=== PATIENT | male | born 2005 | race Caucasian/White ===

== ENCOUNTER 2025-02-06 15:18 | Outpatient (REF) | payer OTHER, SELFPAY ==
--- NOTE | ~2025-02-06 | MR_ITS ---
EXAMINATION: MR SHOULDER, RIGHT CLINICAL INFORMATION: Right shoulder injury during drill/football practice. 19-year-old male. COMPARISON: No prior imaging available. TECHNIQUE: Multiplanar multisequence MR imaging of the right shoulder was done without IV contrast. Examination performed on a 1.5 Nahed Siemens unit utilizing standard sequences. FINDINGS: Rotator Cuff and Biceps Tendon: Supraspinatus: Intact and normal in signal. No discrete tear. Normal muscle belly. Infraspinatus: Intact and normal in signal. No discrete tear. Normal muscle belly. Subscapularis: Intact and normal in signal. No discrete tear. Normal muscle belly. Teres Minor: Intact and normal in signal. No discrete tear. Normal muscle belly. Biceps Long Head: Normally located within the bicipital groove. The tendon is normal in morphology. The rotator interval aspect of the tendon is normal. The anchor is intact. AC Joint and Acromiohumeral Arch: There is edema surrounding the AC joint, more notable involving the distal clavicle, with mild periarticular edema and minimal joint capsular distention. Findings suggest low-grade AC injury. There is a type III acromion. No subacromial spurring. No subacromial narrowing or supraspinatus outlet impingement. Glenohumeral Joint and Labrum: Normal-appearing glenohumeral joint. No cartilaginous abnormalities. Normal joint fluid. Normal alignment with the glenoid. Osseous Structures: Aside from mild edema abutting the AC joint, there is no additional abnormal bone marrow edema or signal. Spino-glenoid Notch: Normal. Quadrilateral Space: Normal. Other: No significant bursal abnormalities. Glenohumeral ligaments are intact. Shoulder girdle musculature is normal in signal. MR/MR shoulder RT wo con IMPRESSION: 1. Findings consistent with a low-grade AC joint injury. 2. The rotator cuff is intact. 3. The remainder of the examination is normal. Electronically signed by: Antwon Ho MD 02/07/2025 08:20 AM EDT
--- OUTSIDE RECORDS SUMMARY | 2025-02-06 18:07 | XMS_ITS | Clinical Summary ---
Author Organization [facility] Address [address] [place] [address] Phone Care Team Providers Care Unloader Operator Name Role Phone Unavailable Primary Care Provider Unavailabl e Medications metaxalone (Skelaxin) 800 mg tablet Take 1 tablet (800 mg total) by mouth 3 (three) times a day for 3 days. 9 tablet 01/05/2024 Active Social History Tobacco Use Types Packs/Day Years Used Date Smoking Tobacco: Never Assessed Sex and Gender Information Value Date Recorded Sex Assigned at Male 03/11/2022 9:26 AM EDT Legal Sex Male 9:13 AM EDT Gender Identity Male 03/11/2022 9:15 AM EDT Sexual Orientation Don't know 02/20/2023 1: 10 PM EDT Last Filed Vital Signs Vital Sign Reading Time Taken Comments Blood Pressure 138/81 04/19/2024 2:51 PM EDT Pulse 80 04/19/2024 2:51 PM EDT Temperature 36.4 ??C (97.6 ??F) 04/19/2024 2:51 PM ED T Respiratory Rate - - Oxygen Saturation 97% 04/19/2024 2:51 PM EDT Inhaled Oxygen Concentration - - Weight 103.9 kg (229 lb) 04/19/2024 2:51 PM EDT Height 182.9 cm (6') 04/19/2024 2:51 PM EDT Body Mass Index 31.06 04/19/2024 2:51 PM EDT Plan of Treatment Health Maintenance Due Date Last Done Comments Obesity Intervention 02/07/2010 HPV Vaccines (1 - Male 3-dos e series) 02/07/2019 [facility] Meningococcal B Vaccine (1 of 2 - Standard) 2020 DTaP,Tdap,and Td Vaccines (1 - Tdap) 02/07/2022 Hepatitis B Vaccines (1 of 3 - 19+ 3-dose series) 02/07/2023 COVID-19 Vaccine (1 - 2023-2 5 season) 2024 Preventive Exam 04/19/2025 04/19/2024, 03/18/2022 Influenza Vaccine (Season Ended) 2025 Adult BMI Assessment 04/19/2026 04/19/2024 Zoster Vaccines (1 of 2) 02/07/2054 HIB Vaccines Aged Out No longer eligi ble based on patient's age to complete this topic Hepatitis A Vaccines Aged Out No long er eligible based on patient's age to complete this topic IPV Vaccines Aged Out No longer eligi ble based on patient's age to complete this topic Meningococcal Vaccine Aged Out No sarah joan eligible based on patient's age to complete this topic Pneumococcal Vaccine: Pediatrics (0 to 5 years) and at-risk patients (6 to 64 years) Aged Out No longer eligible b ased on patient's age to complete this topic Rotavirus Vaccines Aged Out No longer eligible based on patient's age to complete this topic Insurance [facility] Member Subscriber Plan / Payer (Ef fective 2022-Present) Name:Neo Garner Relation to Subscriber:Self Name:Neo Garner Payer ID:[id number] Group ID:Not on file Type:Medicaid Address: [address] [id number] STUDENT
--- OUTSIDE RECORDS SUMMARY | 2025-02-06 18:07 | XMS_ITS | Referral Summary ---
Author Organization [facility] Address [address] [place] [address] Phone Care Team Providers Care Shower Doors And Panels Fabricator Name Role Phone Unavailable Primary Care Provider [...] 04/19/2024 2:51 PM EDT Plan of Treatment Not on file Insurance [facility] STUDENT
== END 2025-02-06 15:19 | disposition home or self-care (01) ==
LOC: HO.MRI 15:18
PROVIDERS: Visit Provider Student in an Organized Health Care Education/Training Program
DX: M25.511 Pain in right shoulder (principal)
CPT/HCPCS: 73221

== ENCOUNTER → 2025-02-06 15:25 | Outpatient (BNV) | payer OTHER, SELFPAY | PROVIDERS: Visit Provider Radiology Diagnostic Radiology | DX: S49.91XA Unspecified injury of right shoulder and upper arm, initial encounter (principal) | CPT/HCPCS: 73221 ==

== ENCOUNTER 2025-08-23 15:16 | Outpatient (REF) | payer OTHER, SELFPAY ==
--- OUTSIDE RECORDS SUMMARY | 2012-10-07 05:40 | XMS_ITS | Continuity of Care Document ---
Author Organization [facility] n[facility] Address [address] [place] [address] Phone Care Team Providers Care Decorating And Assembly Supervisor Name Role Phone Unavailable Unavailable Unavailable Allergies, Adverse Reactions, Alerts Substance Reaction Status Criticality No Known allergies Procedures Procedure Date OV, New Pt, Level III Diagnostic Nasal Endoscopy Consult, Level IV / Office Spirometry W/mnchs-vz-djjie Everardo 010 [address] Allergy Skin Tests Advance Directives Directive Yes / No Effective Date File Name No Information Encounters Encounter Description Practice Location Reason(s) For Visit Diagnoses Date Provider Providers Copied on Encounter OV, New Pt, Level III [facility], [address], [place], [place], [id number] , tel: [phone] [facility] Nasal Fracture (chief complaint) Nasal Bone Fx-closedAllergi c Rhinitis NosHypertrophy Adenoids 2 No Information Consult, Level IV / Office [facility], [address], [place], [place], [id number] , tel: [phone] [facility] Rhinitis (A) (chief complaint) Chr Allrg Conjunctiv NecCoughHypertro phy T And A 0 Chauncey Ireland. [address] [place], [place], [place], [id number], [place]. tel:[phone] Family History Family Member Type Diagnosis Age At Onset Problem (finding) Family history of malignant neoplasm of lung Problem (finding) Family history of cance r of colon Problem (finding) Family history of Aller gies Problem (finding) Eczema Problem (finding) Family history of hyper tension Problem (finding) Family history of breas t cancer Payers Payer name Insurance type Covered democrat ID Authoriza tion(s) No Information Social History Type Description Quantity Date Captured Comments Alcohol Use Details No Caffeine Use Details No Tobacco Use Status No Information Smoking Status Never smoker Sex Male Sexual Orientation Choose not to disclose Vital Signs Date / Time: Height Weight BMI Pulse Rate Blood Pressure Temperature Respiratory Rate Body Surface Area Head Circumference Head Circ. Percentile Wt./Jesús. Percentile BMI percentile Pulse Ox Inhaled Ox 10:01 AM 80.00 lbs Chief Complaint And Reason For Visit From encounter dated '10/07/2012 09:40'. Nasal Fracture (chief complaint). Description: The onset was 6 day(s) ago. The etiology of the fracture was an athletic injury. It has been 6 day(s) since the injury. The direction of the fracture ishead on. The appearance is described as swollen. Associated symptoms include epistaxis (bilateral),ecchymosis. Pertinent negatives include clear rhinorrhea, nasal tenderness, change in mental status, loss of conciousness, sensory deficits in cheek of anterior dentition. Ocular symptoms do not include diplopia. Previous tests performed include nasal x-ray (abnormal - nondisplaced). Reason For Referral Reason For Referral No Information History Of Present Illness Encounter Date Complaint History Of Prese nt Illness No Information Functional Status Date Functional Assessmen t No Information Instructions Date Instruction Additional Infor mation No Information Assessments Type Assessment Date No Information Patient Care Teams Name Effective Dates (start - stop) Status Members No Information
--- NOTE | ~2025-08-23 | MR_ITS ---
CLINICAL HISTORY: FB INJURY 10 18, ?LCL O RLATERAL MENISCUS TEAR Exam: Nonenhanced MRI of the left knee. Comparison: None. Findings: Menisci: Meniscal signal intensities are well-maintained, with no evidence of meniscal tears. Ligaments: Anterior and posterior cruciate ligaments appear intact. Medial collateral ligament appears intact. The fibular collateral ligament appears intact proximally although reveals edema distally near the level of the fibular head (12; 21-24). There is also some edema of the popliteal fibular ligament (12; 25), suggesting posterolateral corner ligamentous injury, without resultant anterior cruciate ligament tear. Osseous structures: There is mild bone marrow edema/bone bruise or likely mild impaction injury involving the anterior aspect of the lateral femoral condyle (10; 8-10 and 12; 13-15). Remaining bone marrow signal intensities appear maintained. Cartilage: Cartilage thickness is maintained. Joint space and soft tissues: Trace joint effusion. No popliteal cysts. Impression: 1. Mild bone marrow edema involving anterior aspect of the lateral femoral condyle, suggesting bone bruise or mild impaction injury. 2. Injury to the distal fibular collateral ligament/lateral collateral ligament with findings suggesting posterolateral corner ligamentous injury, without associated anterior cruciate ligament tear. This document has been electronically signed by: Jamie Eason MD on 08/23/2025 20:36:59
--- OUTSIDE RECORDS SUMMARY | 2025-08-23 21:34 | XMS_ITS | Clinical Summary ---
Author Organization [facility] Address [address] [place] [address] Phone Care Team Providers Care Machine Umbrella Tipper Name Role Phone Unavailable Primary Care Provider [...] 80 04/19/2024 2:51 PM EDT Temperature 36.4 C (97.6 F) 04/19/2024 2:51 PM EDT Respiratory Rate - - Oxygen Saturation 97% 04/19/2024 2:51 PM EDT Inhaled Oxygen Concentration - - Weight 103.9 kg (229 lb) 04/19/2024 2:51 PM EDT Height 182.9 cm (6') 04/19/2024 2:51 PM EDT Body Mass Index 31.06 04/19/2024 2:51 PM EDT Plan of Treatment Health Maintenance Due Date Last Done Comments HPV Vaccines (1 - Male 3-dos e series) 02/07/2019 [facility] Meningococcal B Vaccine (1 of 2 - Standard) 2020 Adult BMI Assessment 02/07/2021 DTaP,Tdap,and Td Vaccines (1 - Tdap) 02/07/2022 Hepatitis B Vaccines (1 of 3 - 19+ 3-dose series) 02/07/2023 Preventive Exam 04/19/2025 04/19/2024, 03/18/2022 COVID-19 Vaccine (1 - 2023-2 5 season) 2025 Influenza Vaccine (#1) 2025 Zoster Vaccines (1 of 2) 02/07/2054 HIB [...] patient's age to complete this topic Insurance [facility] Member Subscriber Plan / Payer (Ef fective 2022-Present) Name:Neo Garner Relation to Subscriber:Self Name:Neo Garner Payer ID:[id number] Group ID:Not on file Type:Medicaid Address: [address] STUDENT
== END 2025-08-23 15:17 | disposition home or self-care (01) ==
LOC: HO.MRI 15:16
PROVIDERS: Visit Provider Family Medicine
DX: M25.562 Pain in left knee (principal)
CPT/HCPCS: 73721

== ENCOUNTER → 2025-08-23 15:33 | Outpatient (BNV) | payer OTHER, SELFPAY | PROVIDERS: Visit Provider Radiology Diagnostic Radiology | DX: S83.281A Other tear of lateral meniscus, current injury, right knee, initial encounter (principal) | CPT/HCPCS: 73721 ==

== ENCOUNTER 2025-08-31 11:41 | Outpatient (AMB) | payer OTHER, SELFPAY ==
--- NOTE | 2025-08-31 11:43 | MHC.OFFVIS ---
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 He felt at the time like he was hit over the fibular head and presented with focal pain. He was able to ambulate and walk off the field but he states he felt ?weird?. Examined the time revealed a moderate varus laxity in extension with a negative dial test. He has not played since then and has been working to cover his range of motion. He has been wearing a hinged knee brace. He comes in today feeling well no pain. Physical Exam Exam Exam: Pleasant gentleman in no acute distress. Left knee with mild tenderness over the fibular head. No effusion. Full range of motion. No joint line tenderness. Negative Juan Diego's. Negative Luis Alberto's/anterior drawer. Negative lag. Dial is negative at 90 and 30 but he does have laxity in varus stress in extension with a proximally 5-10 mm of opening Results Reviewed Results Reviewed: I personally reviewed the MR images. 1. Mild bone marrow edema involving anterior aspect of the Medial femoral condyle, suggesting bone bruise or mild impaction injury. 2. Injury to the distal fibular collateral ligament/lateral collateral ligament with findings suggesting posterolateral corner ligamentous injury, without associated cruciate tear. Assessment & Plan Assessment & Plan (1) Injury of lateral collateral ligament (LCL) of knee: Code(s): S89.90XA - Unspecified injury of unspecified lower leg, initial encounter Category: Medical Plan: This is a 20-year-old with an isolated lateral collateral ligament tear of the left knee. He has moderate laxity in extension only with no rotational instability. The MRI shows a edema in the fibular attachment of the LCL.. I had a long discussion with him regarding return to play and treatment options. This is an injury that will heal. He has no rotational instability but he is not able to return to play at this time. I recommend hinged knee brace at all times. His exam is notable only for mld laxity in extension and so I think range of motion as tolerated and PT for isometrics and avoidance of any aggressive lifting, cutting or running. I will follow up with him next week Coding Level of Care Code Est Pt Level 3 (79520) Diagnoses Injury of lateral collateral ligament (LCL) of knee S89.90XA
--- OUTSIDE RECORDS SUMMARY | 2025-08-31 14:41 | XMS_ITS | Clinical Summary ---
Author Organization [facility] Address [address] [place] [address] Phone Care Team Providers Care Machine Adjuster Leader Case Trim Name Role Phone Unavailable Primary Care Provider [...] 04/19/2025 04/19/2024, 03/18/2022 COVID-19 Vaccine (1 - 2024-2 6 season) 2025 Influenza Vaccine (#1) 2025 Zoster [...] patient's age to complete this topic Insurance [facility] Member Subscriber Plan / Payer (Ef fective 2022-Present) Name:Neo Garner Relation to Subscriber:Self Name:Neo Garner Payer ID:[id number] Group ID:Not on file Type:Medicaid Address: [address] STUDENT
== END 2025-08-31 11:43 | disposition home or self-care (01) ==
LOC: HO.HMGUMA 11:41
PROVIDERS: Visit Provider Orthopaedic Surgery
DX: S89.92XA Unspecified injury of left lower leg, initial encounter (principal)
CPT/HCPCS: 99213

== ENCOUNTER 2025-09-07 09:18 | Outpatient (AMB) | payer OTHER, SELFPAY ==
--- NOTE | 2025-09-07 09:21 | MHC.OFFVIS ---
Intake Visit Reasons: Follow Up Intake Note: Follow up appointment Computer Equipment Installer Required: No HPI HPI Follow Up: Details: Kermit comes in today for his left knee. He is being treated for a G2 LCL injury with mild laxity. He is wearing his brace and limiting his flexion. Physical Exam Exam Exam: Left knee with no effusion + endpoint on varus stress in ext with 5-10mm increased opening compared to right. No TTP. Neg Dial at 90/30 Assessment & Plan Assessment & Plan (1) Injury of lateral collateral ligament (LCL) of knee: Code(s): S89.90XA - Unspecified injury of unspecified lower leg, initial encounter Category: Medical Plan: G 2 isolated LCL injury. Will remain in knee brace and speak with Dr Oscar regarding PRP. Not able to play or practice for remainder of season. I discussed this with him and the training staff. They are aware and in agreement. Cont brace and PT for 6 weeks post injury. Coding Level of Care Code Est Pt Level 4 (31538) Diagnoses Injury of lateral collateral ligament (LCL) of knee S89.90XA
--- OUTSIDE RECORDS SUMMARY | 2025-09-07 10:15 | XMS_ITS | Clinical Summary ---
Author Organization [facility] Address [address] [place] [address] Phone Care Team Providers Care Adobe Architect Name Role Phone Unavailable Primary Care Provider [...] patient's age to complete this topic Insurance [facility] Member Subscriber Plan / Payer (Ef fective 2022-Present) Name:Neo Garner Relation to Subscriber:Self Name:Neo Garner Payer ID:[id number] Group ID:Not on file Type:Medicaid Address: [address] STUDENT
== END 2025-09-07 09:21 | disposition home or self-care (01) ==
LOC: HO.HMGUMA 09:18
PROVIDERS: Visit Provider Orthopaedic Surgery
DX: S89.90XA Unspecified injury of unspecified lower leg, initial encounter (principal)
CPT/HCPCS: 99214

== ENCOUNTER 2025-09-18 11:36 | Outpatient (AMB) | payer OTHER, SELFPAY ==
--- NOTE | 2025-09-18 11:55 | MHC.OFFVIS ---
Intake Visit Reasons: Follow Up Intake Note: Follow Up. HPI HPI Follow Up: Details: Harley is doing well. He has no pain and is wearing his brace. He met with Dr. Oscar and is planning on PRP at fibular insertion of LCL next week. He is restricted from play for remainder of season. Physical Exam Exam Exam: Left knee with no effusion FUll ROM No ttp fibular head ~5-10mm increased lateral opening with varus stress compared to right knee. Results Reviewed Results Reviewed: I personally reviewed the MR images. The fibular collateral ligament appears intact proximally although reveals edema distally near the level of the fibular head. There is also some edema of the popliteal fibular ligament suggesting posterolateral corner ligamentous injury, without resultant posterior cruciate ligament tear. Osseous structures: There is mild bone marrow edema/bone bruise or likely mild impaction injury involving the anterior aspect of the lateral femoral condyle.Remaining bone marrow signal intensities appear maintained. Assessment & Plan Assessment & Plan (1) Injury of lateral collateral ligament (LCL) of knee: Code(s): S89.90XA - Unspecified injury of unspecified lower leg, initial encounter Category: Medical Plan: Isolated LCL injury with + endpoint but increased laxity compared to right without rotational instability. PRP next week and activity modification for 2 weeks following injection and then will re-assess. Coding Level of Care Code Est Pt Level 4 (16843) Diagnoses Injury of lateral collateral ligament (LCL) of knee S89.90XA
== END 2025-09-18 11:57 | disposition home or self-care (01) ==
LOC: HO.HMGUMA 11:36
PROVIDERS: Visit Provider Orthopaedic Surgery
DX: S89.90XA Unspecified injury of unspecified lower leg, initial encounter (principal)
CPT/HCPCS: 99214

== ENCOUNTER 2025-10-06 10:02 | Outpatient (AMB) | payer OTHER, SELFPAY ==
--- NOTE | 2025-10-06 10:05 | MHC.OFFVIS ---
Intake Visit Reasons: Follow Up Biomedical Engineering Supervisor Required: No HPI HPI Follow Up: Details: Harley is now about 6-7 weeks status post isolated LCL injury to the left knee. He did appear P injection proximally 10 days ago. He states he feels well. He is going home soon for the holiday. He has been doing limited physical therapy without any hyperflexion or pivoting or lateral Maneuvers Physical Exam Exam Exam: the left knee with full range of motion. Minimal varus instability in extension. Negative dial. No tenderness to palpation. Assessment & Plan Assessment & Plan (1) Injury of lateral collateral ligament (LCL) of knee: Code(s): S89.90XA - Unspecified injury of unspecified lower leg, initial encounter Category: Medical Plan: LCL injury proximally 7 weeks ago. He is doing well. Were transitioning to a 2nd phase of PT which includes in-line running and strengthening with no flexion past 90 no pivoting and no lateral maneuvers. We will try to get him comfortable brace for him to initiate dynamic activity and training in 6 weeks' time. He will follow up and see me on November 24. In the meantime we will coordinate with his physical therapist at home so that we can have a plan going forward. Coding Level of Care Code Est Pt Level 4 ([id number]) Diagnoses Injury of lateral collateral ligament (LCL) of knee S89.90XA
== END 2025-10-06 10:05 | disposition home or self-care (01) ==
LOC: HO.HMGUMA 10:02
PROVIDERS: Visit Provider Orthopaedic Surgery
DX: S89.90XA Unspecified injury of unspecified lower leg, initial encounter (principal)
CPT/HCPCS: 99214